=== PATIENT | female | born 1955 | race Two or more races ===

== ENCOUNTER 2023-02-05 09:04 | Outpatient (CLI) | payer OTHER | END 2023-02-05 09:08 | disposition home or self-care (01) | LOC: RAD 09:04 | PROVIDERS: ATTEND Internal Medicine | DX: Z01.818 Encounter for other preprocedural examination (principal) ==

== ENCOUNTER 2023-03-25 13:12 | Emergency (ER) | payer OTHER ==
[~2023-03-25] VITALS: Ht 157.5 cm; Wt 72.6 kg
[2023-03-25] MEDS ORDERED: KAPSPARGO SPRIN25 MG PO (13:33)
[2023-03-25] MEDS ORDERED: XARELTO20 MG PO (13:33)
[2023-03-25] MEDS ORDERED: ZESTRIL2.5 MG PO (13:33)
[2023-03-25] MEDS ORDERED: LIPITOR20 MG PO (13:34)
[2023-03-25] MEDS ORDERED: GLUMETZA500 MG PO (13:34)
[2023-03-25 16:53] LABS: HEMATOCRIT 38.7 % (36.0-45.00); MEAN CELL VOLUME 87.3 fL (80.00-100.00); MEAN CORPUSCULAR HEMOGLOBIN 29.5 pg (27.00-32.0); MEAN CORPUSCULAR HGB CONC 33.7 g/dl (32.0-36.0); PLATELET COUNT 279 K/uL (150-450); RED BLOOD COUNT 4.43 M/uL (4.00-6.00)
[2023-03-25 17:06] LABS: URINE APPEARANCE Clear; URINE BILIRRUBIN Negative (NEGATIVE); URINE BLOOD Trace; URINE COLOR Yellow; URINE GLUCOSE Negative (NEGATIVE); URINE LEUKOCYTE Moderate; URINE NITRATE Negative; URINE PROTEIN Negative (NEGATIVE); URINE UROBILINOGEN 0.2 E.U./dl
[2023-03-25 17:07] LABS: URINE BACTERIA 80.5 uL (0.0-1933); URINE EPITHELIAL CELLS 3.7 uL (0.0-38.8); URINE WBC 141.2 uL (0.0-23.2)
[2023-03-25 17:12] LABS: INR 1.06; PARTIAL THROMBOPLASTIN TIME 29.1 SECONDS (22.0-34.0); PROTHROMBIN TIME 11.1 SECONDS (9.0-11.5)
[2023-03-25 17:15] LABS: ALBUMIN 3.7 gm/dL (3.4-5.0); BILIRUBIN TOTAL 0.37 mg/dL (0.3-1.2); CALCIUM 9.6 mg/dL (8.5-10.1); CREATININE SERUM 0.79 mg/dL (0.55-1.02); GFR 72.59; GLOBULINA 4.3 G/DL (2.4-3.5); POTASSIUM 3.74 mEq/L (3.5-5.1)
== END 2023-03-25 22:38 | disposition home or self-care (01) ==
LOC: ER 13:13
PROVIDERS: General Practice
DX: K62.3 Rectal prolapse (principal); Z20.822 Contact with and (suspected) exposure to COVID-19; E11.9 Type 2 diabetes mellitus without complications; Z79.84 Long term (current) use of oral hypoglycemic drugs; I10 Essential (primary) hypertension; K80.20 Calculus of gallbladder without cholecystitis without obstruction; N81.6 Rectocele
CPT/HCPCS: 36415; 74177; 96365; 96366; 96372; 99284; J2250; J3490; J7030; Q9965

== ENCOUNTER 2023-05-08 11:26 | Day surgery (SDC) | payer OTHER ==
[2023-05-05 11:43] LABS: HEMATOCRIT 38.9 % (36.0-45.00); MEAN CELL VOLUME 87.6 fL (80.00-100.00); MEAN CORPUSCULAR HEMOGLOBIN 29.2 pg (27.00-32.0); MEAN CORPUSCULAR HGB CONC 33.3 g/dl (32.0-36.0); PLATELET COUNT 279 K/uL (150-450); RED BLOOD COUNT 4.44 M/uL (4.00-6.00); RED CELL DISTRIBUTION WIDTH 13.4 % (11.5-14.5)
[2023-05-05 11:56] LABS: URINE APPEARANCE Clear; URINE BILIRRUBIN Negative (NEGATIVE); URINE BLOOD Moderate; URINE COLOR Yellow; URINE GLUCOSE Negative (NEGATIVE); URINE LEUKOCYTE Moderate; URINE NITRATE Negative; URINE PROTEIN Negative (NEGATIVE); URINE UROBILINOGEN 0.2 E.U./dl
[2023-05-05 11:57] LABS: URINE BACTERIA 88.1 uL (0.0-1933); URINE EPITHELIAL CELLS 28.1 uL (0.0-38.8); URINE RBC 27.5 uL (0.0-20.8); URINE WBC 189.4 uL (0.0-23.2)
[2023-05-05 12:35] LABS: ALBUMIN 3.7 gm/dL (3.4-5.0); BILIRUBIN TOTAL 0.48 mg/dL (0.3-1.2); CALCIUM 9.3 mg/dL (8.5-10.1); CREATININE SERUM 0.67 mg/dL (0.55-1.02); GFR 87.79; GLOBULINA 3.7 G/DL (2.4-3.5); INR 1.05; PARTIAL THROMBOPLASTIN TIME 33.7 SECONDS (22.0-34.0); POTASSIUM 4.38 mEq/L (3.5-5.1); TOTAL PROTEIN 7.4 gm/dL (6.4-8.2)
[~2023-05-08 11:26] MED LIST: GLUMETZA500 MG PO; KAPSPARGO SPRIN25 MG PO; LIPITOR20 MG PO; XARELTO20 MG PO; ZESTRIL2.5 MG PO
[2023-05-08] MEDS ORDERED: OXYC1TAB9 PO (15:35)
== END 2023-05-08 21:05 | disposition home or self-care (01) ==
LOC: CIR.AMB 11:26
PROVIDERS: ATTEND Surgery
DX: K64.3 Fourth degree hemorrhoids (principal); K64.4 Residual hemorrhoidal skin tags; K64.8 Other hemorrhoids; K62.89 Other specified diseases of anus and rectum; K64.2 Third degree hemorrhoids; K62.5 Hemorrhage of anus and rectum; K59.09 Other constipation; Z20.822 Contact with and (suspected) exposure to COVID-19; I10 Essential (primary) hypertension